=== PATIENT | female | born 1960 | race Caucasian/White ===

== ENCOUNTER 2024-11-21 07:48 | Emergency (ER) | payer MEDICAID, SELFPAY ==
[2024-11-21 07:59] VITALS: PULSE 100; RESP 18; O2SAT 97; BMI 29.2
[2024-11-21 08:29] VITALS: BP 106/71; PULSE 95; RESP 18; TEMP 36.7; O2SAT 98
--- NOTE | 2024-11-21 08:44 | XR_ITS ---
EXAMINATION: Ankle, right 3 views . Technique: Ankle AP, oblique, lateral 3 views Date and time of exam: November 21, 2024 0851 hrs. Indications: Patient fell today with injury to the ankle, ankle pain. Findings: Acute fractures distal tibia, comminuted, including through the posterior malleolar region Fractures distal fibula without significant offset Ankle subluxation with marked widening of the anterior tibiotalar joint Impression: Ankle fractures with subluxation
--- NOTE | 2024-11-21 08:44 | XR_ITS ---
Examination: Foot, right, 3 views Technique: AP, oblique, lateral views foot, 3 views Date and time of exam: November 21, 2024 0851 hrs. Indications: Patient fell today with injury to the right foot, right foot pain Findings: Moderate osteopenia Please see the ankle report Tarsal bones metatarsals and digits appear intact Impression: Please see the ankle report
--- NOTE | 2024-11-21 09:05 | PD.EDRME ---
Rapid Medical Screening Exam RME Arrival date/time: 11/21/24 07:48 64-year-old female presents the emergency department with EMS for complaints of right ankle pain Chief Complaint: Ankle/Foot Injury Time Seen by Provider: 11/21/24 08:10 Vital signs: Vital Signs Temperature 98.1 F 11/21/24 08:29 Pulse Rate 95 11/21/24 08:29 Respiratory Rate 18 11/21/24 08:29 Blood Pressure 106/71 11/21/24 08:29 Pulse Oximetry (%) 98 11/21/24 08:29 Oxygen Delivery Method Room Air 11/21/24 08:29
--- NOTE | 2024-11-21 09:29 | PD.EDANKLE ---
Lower Extremity Injury RME/HPI General Chief Complaint: Ankle/Foot Injury Stated Complaint: ANKLE INJURY Time Seen by Provider: 11/21/24 08:10 Arrival date/time: 11/21/24 07:48 RME / HPI RME / HPI Narrative: 11/21/24 07:48 64-year-old female presents the emergency department with EMS for complaints of right ankle pain DR. LEE MAIN ED EVALUATION: 64 year old female presents to the Emergency Department [facility] with complaint of right ankle injury due to falling from bed prior to arrival. States she is unable to bear any weight secondary to the pain. Related Data Home Medications ?Medication ?Instructions ?Recorded ?Confirmed quetiapine 300 mg tablet 300 mg PO TID 09/22/18 03/14/24 gabapentin 600 mg tablet 600 mg PO BID 05/20/19 03/14/24 chlorzoxazone 250 mg tablet 250 mg PO QID 05/07/20 03/14/24 ibuprofen 800 mg tablet 800 mg PO Q8H PRN Pain 05/07/20 03/14/24 loratadine 10 mg tablet 10 mg PO QDAY 05/07/20 03/14/24 zolpidem 12.5 mg tablet,extended 12.5 mg PO HS 05/07/20 03/14/24 release,multiphase amlodipine 10 mg tablet 10 mg PO QDAY 03/14/24 03/14/24 Previous Rx's ?Medication ?Instructions ?Recorded pantoprazole 40 mg tablet,delayed 40 mg PO QDAY #30 tabs 05/07/20 release (Protonix) lactulose 10 gram/15 mL oral 10 g (15 mL) PO BID #946 mL 01/21/24 solution docusate sodium 100 mg capsule 100 mg PO BID #40 caps 03/15/24 (Colace) hydrocodone 5 mg-acetaminophen 325 1 tab PO Q6H PRN pain (scale score 03/15/24 mg tablet 7-10) #20 tabs ibuprofen 600 mg tablet 600 mg PO Q8H PRN pain (scale 03/15/24 score 4-6) #15 tabs hydrocodone 5 mg-acetaminophen 325 1 tab PO Q6H PRN pain #14 tabs 11/21/24 mg tablet Allergies Allergy/AdvReac Type Severity Reaction Status Date / Time No Known Allergies Allergy Verified 11/21/24 08:03 Review of Systems Review of Systems Systems Reviewed: All systems reviewed, normal except as documented Past Medical History Past Medical History NEUROLOGIC: Positive Neurological Disorders and Dementia CARDIAC: Positive Cardiac Disorders, Hypercholesterolemia and Hypertension RESPIRATORY: Positive Respiratory Disorders, Chronic Obstructive Pulmonary Disease (COPD) and Pneumonia GASTROINTESTINAL: Positive Gastrointestinal Disorders, Hepatitis (C had treatment 1995), Cirrhosis, Gall Bladder Disease and Irritable Bowel REPRODUCTIVE: Positive Previous Pregnancies MUSCULOSKELETAL: Positive Musculoskeletal Disorders, Arthritis (hands) and Fractures (here for r ankle fracture) PSYCHO/SOCIAL: Positive Depression OTHER HISTORY: Positive Chicken Pox, Measles and Mumps Surgical History SURGICAL: Positive Abdominal Surgery, Joint Replacement, of Shoulder Sx, Open Reduction Internal Fixation (Left shoulder has metal) and of Back Surgery Social History SMOKING STATUS: Current every day smoker SUBSTANCE USE: does not use ALCOHOL: Never ED Exam Narrative Physical exam: GENERAL APPEARANCE: alert and oriented x 4, well-developed, well-nourished VITALS: All vitals were reviewed and the pulse ox is 98% on room air, which is normal according to my interpretation. HEENT: Normocephalic, atraumatic; pupils equal, round, reactive to light; EOMI; mucous membranes pink, moist; oropharynx clear NECK: Supple LUNGS: CTABL; no wheezes, no rales, no rhonchi HEART: Regular rate, regular rhythm; normal S1, S2; no murmurs ABDOMEN: non distended; normal BS; soft, no tenderness, no guarding, no rebound; no masses, no organomegaly, no hernia BACK: no CVA tenderness EXTREMITIES: Right ankle edema and deformity, NV is intact. NEUROLOGIC: awake; alert and oriented x4; cranial nerves II-XII grossly intact; no focal sensory or motor deficits PSYCHIATRIC: appropriate mood and affect SKIN: warm, dry, normal color; no rashes Course Quality Measures none Orders Category Date Time Status Crutches .NOW Care 11/21/24 14:[address] ankle RT wo con Stat Exams 11/21/24 10:09 Completed XR ankle comp RT min 3V Stat Exams 11/21/24 08:44 Completed XR foot comp RT min 3V Stat Exams 11/21/24 08:44 Completed HYDROmorphone INJ [Dilaudid Inj] Med 11/21/24 09:29 Discontinued 1 mg IVP X1 ONE HYDROmorphone INJ [Dilaudid Inj] Med 11/21/24 14:30 Discontinued 1 mg IVP X1 ONE Ondansetron Inj [Zofran Inj] Med 11/21/24 09:29 Discontinued 4 mg IV X1 ONE Ondansetron Inj [Zofran Inj] Med 11/21/24 14:30 Discontinued 4 mg IV X1 ONE Vital Signs Vital signs: Vital Signs Temperature 98.1 F 11/21/24 08:29 Pulse Rate 95 11/21/24 08:29 Respiratory Rate 18 11/21/24 08:29 Blood Pressure 106/71 11/21/24 08:29 Pulse Oximetry (%) 98 11/21/24 08:29 Oxygen Delivery Method Room Air 11/21/24 08:29 Extremity Injury, Lower MDM Narrative MDM Narrative:: I, Stacey Ho, am scribing for and in the presence of Dr. Lee. Patient data External records reviewed:: EMS form Clinical information provided by:: patient and EMS Social determinants that could affect healthcare access:: none Patient has the following chronic illnesses:: Hypertension, IBS, gallstones, cholecystectomy 03/15/[address] Reddy. How is presenting disease/condition affected by chronic disease/condition?: uneffected by Evaluation data The following diagnostics were reviewed and interpreted by me:: radiology exam(s) Lab and/or radiology exams considered but not ordered:: none Interpretation Summary: Procedure(s): XR foot comp RT min 3V Accession Number(s): [id number] cc: Carole (MILVIA),[employer]; Blayne Shaver MD; Chelo Clark~ Examination: Foot, right, 3 views Technique: AP, oblique, lateral views foot, 3 views Date and time of exam: November 21, 2024 0851 hrs. Indications: Patient fell today with injury to the right foot, right foot pain Findings: Moderate osteopenia Please see the ankle report Tarsal bones metatarsals and digits appear intact Impression: Please see the ankle report Dictated By: Blayne Shaver MD Procedure(s): XR ankle comp RT min 3V Accession Number(s): [id number] cc: Carole KIMBALL),[employer]; Blayne Shaver MD; Chelo Clark~ EXAMINATION: Ankle, right 3 views . Technique: Ankle AP, oblique, lateral 3 views Date and time of exam: November 21, 2024 0851 hrs. Indications: Patient fell today with injury to the ankle, ankle pain. Findings: Acute fractures distal tibia, comminuted, including through the posterior malleolar region Fractures distal fibula without significant offset Ankle subluxation with marked widening of the anterior tibiotalar joint Impression: Ankle fractures with subluxation Dictated By: Blayne Shaver MD Procedure(s): CT ankle RT wo con Accession Number(s): [id number] cc: Blayne Shaver MD; Kimberly Lee MD; Chelo Clark~ Examination: CT right ankle, without contrast. 2-D sagittal reconstructions. 2-D coronal reconstructions. 3-D reconstructions. Date and time of exam:November 21, 2024 1001 hrs. Indications: Patient fell today with injury to the ankle, ankle pain CTDI: vol (mGy):4.95 DLP: (mGycm):131 Technique: Multiple 1.25 mm axial sections of the right ankle without intravenous contrast have been obtained. 2-D sagittal and coronal reconstructions have been obtained. 3-D reconstructions have been obtained. Low dose protocols were performed. One or more of the following dose reduction techniques were used; automated exposure control, adjustment of the mA and/or KV according to patient size, use of iterative reconstruction technique. Findings: Acute comminuted fractures distal tibia including 27 mm posterior malleolar fracture fragment Fractures extend to the distal articulating surface of the tibia There is a fracture also to the medial malleolus coronal image 50 without significant displacement Fractures distal fibula, 25 mm from the fibular tip Talus appears intact Abnormal widening at the anterior tibiotalar joint Offset at the articular surface of the distal tibia, 3 mm, sagittal image 36 Impression: Acute comminuted fractures distal tibia including 27 mm mildly displaced posterior malleolar fracture Medial malleolar fracture is evident without significant displacement Fractures distal fibula 25 mm on the fibular tip with 7 mm separation at the main fracture site Abnormal widening of the anterior tibiotalar joint Dictated By: Blayne Shaver MD Medications / Prescriptions Medications or Prescriptions considered but not ordered:: none Medication administrations:: Medication Administration History Discontinued Medications Hydromorphone HCl (Hydromorphone Inj 2 Mg/Ml Vial) 1 mg IVP X1 ONE Stop: 11/21/24 09:30 Last Admin: 11/21/24 09:59 Dose: 1 mg Documented By: GEOFFREY Hydromorphone HCl (Hydromorphone Inj 2 Mg/Ml Vial) 1 mg IVP X1 ONE Stop: 11/21/24 14:31 Last Admin: 11/21/24 14:38 Dose: 1 mg Documented By: GEOFFREY Ondansetron HCl (Ondansetron Inj 2 Mg/Ml Inj 2 Ml) 4 mg IV X1 ONE Stop: 11/21/24 09:30 Last Admin: 11/21/24 09:59 Dose: 4 mg Documented By: GEOFFREY Ondansetron HCl (Ondansetron Inj 2 Mg/Ml Inj 2 Ml) 4 mg IV X1 ONE Stop: 11/21/24 14:31 Last Admin: 11/21/24 14:37 Dose: 4 mg Documented By: GEOFFREY see above if any Consultations Consultation(s) initiated? (list below): Yes Consultation #1 (Physician, Specialty, Details): Left a message for Dr. Norris and sent him images. Time: 09:31 Consultation #2 (Physician, Specialty, Details): Discussed test HPI, PMHx, lab, radiology results and/or management with Dr. Norris. Dr. Norris recommends a CT of the ankle. Time: 10:11 Consultation #3 (Physician, Specialty, Details): 1329: Called Dr. Norris back. He is currently in surgery but they are still waiting to hear on [facility] at this time. 1400: Dr. Norris called back. Pattient will follow up with ortho Dr. Saldivar at [facility] as an outpatient. Diagnosis Extremity Injury, Lower Differential Diagnosis: ankle sprain and strain, acute internal derangement of knee, fracture of toe and ankle fracture Most likely diagnosis given after review of the tests above:: Ankle fracture Admission Indicated Admission indicated?: not indicated Admission Request Was there a request for admission?: No Disposition Plan Disposition Plan: Discharge Discharge Attestation Discharge Attestation: The patient and all family members were given an opportunity to ask questions and understood the discharge instructions. Discharge instructions specifically effects, indications for sooner follow up or return to the emergency department, and the expected course of current diagnosis. Patient condition: Stable Discharge Plan Plan Patient Disposition: HOME (Self Care) Prescriptions/Referrals Prescriptions/Med Rec: New hydrocodone-acetaminophen 5-325 mg tablet 1 tab PO Q6H MDD 9 PRN (Reason: pain) Qty: 14 0RF No Action quetiapine 300 mg tablet 300 mg PO TID gabapentin 600 mg tablet 600 mg PO BID Patient Comments: TAKE ONE TABLET BY MOUTH TWICE DAILY NEEDED FOR PAIN ibuprofen 800 mg Tablet 800 mg PO Q8H PRN (Reason: Pain) chlorzoxazone 250 mg Tablet 250 mg PO QID loratadine 10 mg Tablet 10 mg PO QDAY zolpidem 12.5 mg Tablet,Ext Release Multiphase 12.5 mg PO HS pantoprazole [Protonix] 40 mg tablet,delayed release (DR/EC) 40 mg PO QDAY Qty: 30 0RF lactulose 10 gram/15 mL solution 10 g PO BID Qty: 946 0RF amlodipine 10 mg Tablet 10 mg PO QDAY docusate sodium [Colace] 100 mg capsule 100 mg PO BID Qty: 40 0RF hydrocodone-acetaminophen 5-325 mg tablet 1 tab PO Q6H MDD 4 PRN (Reason: pain (scale score 7-10)) Qty: 20 0RF ibuprofen 600 mg tablet 600 mg PO Q8H PRN (Reason: pain (scale score 4-6)) Qty: 15 0RF Referrals: Chelo Clark FNP [Primary Care Provider] - In 1 week Problem List Clinical Impression: Ankle fracture Patient/Caregiver Discharge Instructions Education Materials: ED Crutch Walking, ED Fracture, Lower Extremity Additional Instructions: Keep leg elevated. No weight bearing. Follow up with Dr. Saldivar, orthopedics, [facility] on Tuesday11/26/24. Call office for appointment time. [phone] [id number] [facility] [address], [place] [address] Print Language: Vietnamese Stand Alone Forms: Mariam Award Info., Patient Portal Info Letter
[2024-11-21] MEDS: HYDROmorphone INJ 2 MG/ML VIAL 1 MG IVP ×2 (09:59→14:38)
[2024-11-21] MEDS: ONDANSETRON INJ 2 MG/ML INJ 2 ML 4 MG IV ×2 (09:59→14:37)
[2024-11-21 10:01] VITALS: BP 133/85; PULSE 92; RESP 16; TEMP 36.8; O2SAT 97
--- NOTE | 2024-11-21 10:09 | XR_ITS ---
Examination: CT right ankle, without contrast. 2-D sagittal reconstructions. 2-D coronal reconstructions. 3-D reconstructions. Date and time of exam:November 21, 2024 1001 hrs. Indications: Patient fell today with injury to the ankle, ankle pain CTDI: vol (mGy):4.95 DLP: (mGycm):131 Technique: Multiple 1.25 mm axial sections of the right ankle without intravenous contrast have been obtained. 2-D sagittal and coronal reconstructions have been obtained. 3-D reconstructions have been obtained. Low dose protocols were performed. One or more of the following dose reduction techniques were used; automated exposure control, adjustment of the mA and/or KV according to patient size, use of iterative reconstruction technique. Findings: Acute comminuted fractures distal tibia including 27 mm posterior malleolar fracture fragment Fractures extend to the distal articulating surface of the tibia There is a fracture also to the medial malleolus coronal image 50 without significant displacement Fractures distal fibula, 25 mm from the fibular tip Talus appears intact Abnormal widening at the anterior tibiotalar joint Offset at the articular surface of the distal tibia, 3 mm, sagittal image 36 Impression: Acute comminuted fractures distal tibia including 27 mm mildly displaced posterior malleolar fracture Medial malleolar fracture is evident without significant displacement Fractures distal fibula 25 mm on the fibular tip with 7 mm separation at the main fracture site Abnormal widening of the anterior tibiotalar joint
[2024-11-21 11:50] VITALS: BP 141/86; PULSE 97; RESP 18; TEMP 36.6; O2SAT 97
[2024-11-21 14:20] VITALS: BP 147/81; PULSE 85; RESP 19; TEMP 36.7; O2SAT 97
[2024-11-21 15:30] VITALS: BP 128/83; PULSE 91; RESP 18; TEMP 36.8; O2SAT 96
== END 2024-11-21 15:32 | disposition home or self-care (01) ==
PROVIDERS: Emergency Provider Emergency Medicine; PCP Nurse Practitioner Family
DX: S82.51XA Displaced fracture of medial malleolus of right tibia, initial encounter for closed fracture (principal); S82.831A Other fracture of upper and lower end of right fibula, initial encounter for closed fracture; W06.XXXA Fall from bed, initial encounter
CPT/HCPCS: 73610; 73630; 73700; 96374; 96375; 96376; 99284; J2405; J3490

== ENCOUNTER 2025-04-30 11:46 | Emergency (ER) | payer BC, SELFPAY ==
[2025-04-30 12:17] VITALS: BP 88/61; PULSE 109; RESP 21; TEMP 37.6; O2SAT 87
--- NOTE | 2025-04-30 12:20 | EKG_ITS ---
[facility] Test Date: 2025-04-30 Pat Name: ITZ CATES Department: Room: - Gender: Female Picu Nurse: : 1960 Requested By: Charly Ji Order Number: [id number] Reading MD: Charly Ji Measurements Intervals [place] Rate: 102 P: 58 IN: 153 QRS: 51 QRSD: 82 T: 76 QT: 340 QTc: 444 Interpretive Statements SINUS TACHYCARDIA NONSPECIFIC T-WAVE ABNORMALITY ABNORMAL RHYTHM ECG Compared to ECG 03/14/2024 12:28:24 T-wave abnormality now present Sinus rhythm no longer present ST (T wave) deviation no longer present /store/S0/[id number]/ecg/[id number].pdf
--- NOTE | 2025-04-30 12:20 | XR_ITS ---
Examination: Foot, left, 3 views Technique: AP, oblique, lateral views foot, 3 views Date and time of exam: April 30, 2025 at 12:42 PM INDICATIONS: Injury to the foot today, foot pain. FINDINGS: Lisfranc fracture dislocations tarsometatarsal joints, fractures bases first second third and fourth metatarsals with dislocations at these tarsometatarsal joints Fractures medial mid and lateral cuneiforms Digits intact IMPRESSION: Prominent Lisfranc metatarsal tarsal fractures dislocation
--- NOTE | 2025-04-30 12:21 | PD.EDRME ---
Rapid Medical Screening Exam [facility] Arrival date/time: 04/30/25 11:46 64-year-old female with a history of hypertension presents to the emergency room with a chief complaint of left-sided foot swelling and tenderness after a ground-level fall that occurred last night. Patient states she has been falling frequently and does not know why. I have greeted and performed a focused initial assessment of this patient. A comprehensive ED assessment and evaluation of the patient, analysis of all test results, and completion of the medical decision making process will be conducted by additional ED providers. Chief Complaint: Ankle/Foot Injury Time Seen by Provider: 04/30/25 12:21 Vital signs: Vital Signs Temperature 99.7 F 04/30/25 12:17 Pulse Rate 109 H 04/30/25 12:17 Respiratory Rate 21 H 04/30/25 12:17 Blood Pressure 88/61 L 04/30/25 12:17 Pulse Oximetry (%) 87 L 04/30/25 12:17 Oxygen Delivery Method Room Air 04/30/25 12:17 Vital signs reviewed by provider: Yes
--- NOTE | 2025-04-30 12:29 | PD.EDADULT ---
ED General RME/HPI General Chief complaint: Ankle/Foot Injury Stated complaint: Fell Sat. morning, left foot broken Time Seen by Provider: 04/30/25 12:21 Arrival date/time: 04/30/25 11:46 CC: Left foot pain hypotension HPI patient fell Tuesday night, 3 days ago, resulting in swollen foot pain. Patient on upon initial assessment was noted to be hypotensive. The patient states that on occasion this morning she has been lightheaded or dizzy when she sits up or stands up. Patient denies fever chills chest pain shortness of breath or difficulty breathing. Local foot pain is now 6 on a 10 scale when standing, 1-2 on a pain scale when laying down. Patient smokes approximately half to 1 pack a day. Review the medical record show the patient was seen here in November 2024 for right ankle fracture secondary to fall at nighttime. RME / HPI RME / HPI narrative: 04/30/25 11:46 64-year-old female with a history of hypertension presents to the emergency room with a chief complaint of left-sided foot swelling and tenderness after a ground-level fall that occurred last night. Patient states she has been falling frequently and does not know why. I have greeted and performed a focused initial assessment of this patient. A comprehensive ED assessment and evaluation of the patient, analysis of all test results, and completion of the medical decision making process will be conducted by additional ED providers. Related Data Home Medications ?Medication ?Instructions ?Recorded ?Confirmed quetiapine 300 mg tablet 300 mg PO TID 09/22/18 03/14/24 gabapentin 600 mg tablet 600 mg PO BID 05/20/19 03/14/24 chlorzoxazone 250 mg tablet 250 mg PO QID 05/07/20 03/14/24 ibuprofen 800 mg tablet 800 mg PO Q8H PRN Pain 05/07/20 03/14/24 loratadine 10 mg tablet 10 mg PO QDAY 05/07/20 03/14/24 zolpidem 12.5 mg tablet,extended 12.5 mg PO HS 05/07/20 03/14/24 release,multiphase amlodipine 10 mg tablet 10 mg PO QDAY 03/14/24 03/14/24 Previous Rx's ?Medication ?Instructions ?Recorded pantoprazole 40 mg tablet,delayed 40 mg PO QDAY #30 tabs 05/07/20 release (Protonix) lactulose 10 gram/15 mL oral 10 g (15 mL) PO BID #946 mL 01/21/24 solution docusate sodium 100 mg capsule 100 mg PO BID #40 caps 03/15/24 (Colace) hydrocodone 5 mg-acetaminophen 325 1 tab PO Q6H PRN pain (scale score 03/15/24 mg tablet 7-10) #20 tabs ibuprofen 600 mg tablet 600 mg PO Q8H PRN pain (scale 03/15/24 score 4-6) #15 tabs hydrocodone 5 mg-acetaminophen 325 1 tab PO Q6H PRN pain #14 tabs 11/21/24 mg tablet albuterol sulfate 90 mcg/actuation 1 inh inhalation QID #6.7 grams 04/30/25 aerosol inhaler amoxicillin 875 mg-potassium 1 tab PO BID #14 tabs 04/30/25 clavulanate 125 mg tablet meloxicam 7.5 mg tablet 7.5 mg PO QDAY #10 tabs 04/30/25 Allergies Allergy/AdvReac Type Severity Reaction Status Date / Time No Known Allergies Allergy Verified 04/30/25 11:51 Review of Systems Review of Systems Narrative Review of Systems: GEN: No fever, no chills, no weight loss EYES: No discharge, no visual changes, no pain HEENT: No ear pain, no congestion, no sore throat PULM: No shortness of breath, no cough, no congestion CV: No chest pain, no dyspnea on exertion, no palpitations GI: No nausea, no vomiting, no diarrhea, no pain, no constipation : No frequency, no urgency, no dysuria MUSC/SKEL: + joint pain, no back pain SKIN: No rash PSYCH: No hallucinations, no depression HEME/LYMPH: No easy bleeding or bruising tendencies NEURO: No weakness, no headache Past Medical History Past Medical History NEUROLOGIC: Positive Neurological Disorders and Dementia; Negative Seizures CARDIAC: Positive Cardiac Disorders, Hypercholesterolemia and Hypertension; Negative Congestive Heart Failure RESPIRATORY: Positive Chronic Obstructive Pulmonary Disease (COPD) and Pneumonia; Negative Asthma GASTROINTESTINAL: Positive Gastrointestinal Disorders, Hepatitis (C had treatment 1995), Cirrhosis, Gall Bladder Disease and Irritable Bowel GENITOURINARY: Negative Genitourinary Disorders or Renal Disease REPRODUCTIVE: Positive Previous Pregnancies MUSCULOSKELETAL: Positive Musculoskeletal Disorders, Arthritis (hands) and Fractures (here for r ankle fracture) ENT: Negative Cataracts or Glaucoma ENDOCRINE: Negative Endocrine Disorders, Diabetes Mellitus Type 1 or Diabetes Mellitus Type 2 HEMATOLOGIC: Negative Blood Disorders or Sickle Cell Disease PSYCHO/SOCIAL: Positive Depression OTHER HISTORY: Positive Chicken Pox, Measles and Mumps; Negative Hospitalization, Autoimmune Disease, Shingles, Blood Transfusions, Anesthesia Reactions or Cancer Family History FAMILY HISTORY: Negative Family Psychiatric Problems, Family Respiratory Disorders, Family Cardiac Disorders, Family Gastrointestinal Problems, Family Cancer, Family Surgery or Family Anesthesia Reaction Surgical History SURGICAL: Positive Abdominal Surgery, Joint Replacement and Open Reduction Internal Fixation (Left shoulder has metal); Negative Cardiac Surgery Social History SMOKING STATUS: Current every day smoker SUBSTANCE USE: does not use ED Exam Narrative Physical exam: [General: In mild discomfort not in any acute distress Head normocephalic HEENT: Within acceptable limits Neck is supple nontender Chest equal chest rise nontender to palpation Respiratory: Clear to auscultation no wheezes crackles or rubs CV: Rate rhythm is regular no murmurs rubs or clicks Abdomen is soft nontender no masses positive bowel sounds all 4 quadrants Back: No CVA tenderness no spinous process tenderness from cervical spine thoracic and lumbar spine Skin: Left lower extremity foot, she has the entire foot covered in ecchymosis with a serous blister to the dorsum of the foot. Ecchymosis extends into the arch of the foot and over the ball of the foot no calcaneal ecchymosis no Achilles tendon ecchymosis. Otherwise skin is intact no petechiae rash induration ulceration or crepitus Extremities: Decreased range of motion of the left ankle and foot secondary to pain. Otherwise moving all other extremities against resistance cap refill less than 2 seconds neurosensory intact Neuro: Awake alert oriented x3 Glascow coma 15 no focal deficits] Course Course Course Narrative: Patient case discussed with Dr. Jr Aden on-call states the patient needs inpatient surgical reduction by podiatry which is not available here. Requesting the patient be transferred to a trauma center. So the second fall in 4 months I suspect the patient has been polypharmacy with her psychiatric medications as well as trazodone nighttime. Patient denies ever having taken lactulose. However this is listed as one of her medications. Patient's case clinical presentation and laboratory findings discussed with Dr. Renetta cotton, who states patient can be seen in outpatient but definitely require surgery. The patient is to be put into a splint and nonweightbearing. At this time we will treat the patient for the sepsis and if warranted discharge her for outpatient follow-up Patient informs me, Dr. Corrales performed the surgery on his right foot. She will refer back to him once she is discharged. Ultimately do not feel that the foot was the cause of the lactic acid or leukocytosis. And continued workup chest x-ray reveals pneumonia. The patient is a cigarette smoker oxygen saturations have remained consistently between 88 and 92% on room air. Patient was offered admission but declined stating she wants to go home and follow-up with the emt/paramedic for her foot. We will discharge the patient with antibiotics pain medication and inhaler. Patient is strongly advised to return to anytime she feels that she is short of breath. Quality Measures none Orders Category Date Time Status Crutches .NOW Care 04/30/25 14:42 Active EKG (ED ONLY) *Do not use* NOW Care 04/30/25 12:20 Completed In and Out Catheter X1PRN Care 04/30/25 14:00 Completed Splint / Immobilizer STAT Care 04/30/25 14:41 Active Referral - Garment Finisher Stat Cons 04/30/25 13:42 Active CXR [XR chest 1V] Stat Exams 04/30/25 15:55 Completed EKG (ED Only) Stat Exams 04/30/25 12:20 Draft XR foot comp LT min 3V Stat Exams 04/30/25 12:20 Completed Alcohol, Blood Medical Stat Lab 04/30/25 14:00 Completed Ammonia Stat Lab 04/30/25 14:00 Completed B-Type Natriuretic Peptide Stat Lab 04/30/25 12:52 Completed Blood Culture (Lab) Stat Lab 04/30/25 12:52 Received CBC Stat Lab 04/30/25 12:52 Completed CMP [Comprehensive Metabolic Panel] Stat Lab 04/30/25 12:52 Completed Creatine Kinase Stat Lab 04/30/25 14:00 Completed Drug Screen,Urine Stat Lab 04/30/25 14:19 Completed LDH (Lactate Dehydrogenase) Stat Lab 04/30/25 12:52 Completed Lactate (Lactic Acid) Stat Lab 04/30/25 12:45 Completed Lactic Acid, 3 HR Stat Lab 04/30/25 16:18 Completed Magnesium Stat Lab 04/30/25 12:52 Completed Magnesium Stat Lab 04/30/25 14:00 Completed Partial Thromboplastin Time Stat Lab 04/30/25 12:52 Completed Phosphorous Stat Lab 04/30/25 14:00 Completed Procalcitonin Stat Lab 04/30/25 12:52 Completed Prothrombin Time with INR Stat Lab 04/30/25 12:52 Completed Troponin I Stat Lab 04/30/25 12:52 Completed UA [Urinalysis] Stat Lab 04/30/25 14:19 Completed Urinalysis, C/S if Indicated Stat Lab 04/30/25 14:19 Completed Urine Culture Stat Lab 04/30/25 14:19 Received Morphine* Inj Med 04/30/25 14:01 Discontinued 4 mg IVP X1 ONE Ondansetron Inj [Zofran Inj] Med 04/30/25 14:01 Discontinued 4 mg IVP X1 ONE Piper/Tazo 3.375 gm Premix [Zosyn] Med 04/30/25 13:45 Discontinued 3.375 gm in 50 ml IV X1 Ringers Lactated 1000 ml [Lactated Ringers] 1,000 ml Med 04/30/25 13:45 Discontinued IV 999 mls/hr Sodium Chloride 0.9% 1000 ml [Ns] 1,000 ml Med 04/30/25 12:29 Discontinued IV 999 mls/hr Sodium Chloride 0.9% 500 ml [Ns] 500 ml Med 04/30/25 13:45 Discontinued IV 999 mls/hr Vital Signs Vital signs: Vital Signs Temperature 99.7 F 04/30/25 12:17 Pulse Rate 109 H 04/30/25 12:17 Respiratory Rate 21 H 04/30/25 12:17 Blood Pressure 88/61 L 04/30/25 12:17 Pulse Oximetry (%) 87 L 04/30/25 12:17 Oxygen Delivery Method Room Air 04/30/25 12:17 Discharge Plan Plan Patient Disposition: HOME (Self Care) Patient condition on transfer: Stable Prescriptions/Referrals Prescriptions/Med Rec: New amoxicillin-pot clavulanate 875-125 mg tablet 1 tab PO BID Qty: 14 0RF meloxicam 7.5 mg tablet 7.5 mg PO QDAY Qty: 10 0RF albuterol sulfate 90 mcg/actuation HFA aerosol inhaler 1 inh inhalation QID Qty: 6.7 1RF No Action quetiapine 300 mg tablet 300 mg PO TID gabapentin 600 mg tablet 600 mg PO BID Patient Comments: TAKE ONE TABLET BY MOUTH TWICE DAILY NEEDED FOR PAIN ibuprofen 800 mg Tablet 800 mg PO Q8H PRN (Reason: Pain) chlorzoxazone 250 mg Tablet 250 mg PO QID loratadine 10 mg Tablet 10 mg PO QDAY zolpidem 12.5 mg Tablet,Ext Release Multiphase 12.5 mg PO HS pantoprazole [Protonix] 40 mg tablet,delayed release (DR/EC) 40 mg PO QDAY Qty: 30 0RF lactulose 10 gram/15 mL solution 10 g PO BID Qty: 946 0RF hydrocodone-acetaminophen 5-325 mg tablet 1 tab PO Q6H MDD 9 PRN (Reason: pain) Qty: 14 0RF amlodipine 10 mg Tablet 10 mg PO QDAY docusate sodium [Colace] 100 mg capsule 100 mg PO BID Qty: 40 0RF hydrocodone-acetaminophen 5-325 mg tablet 1 tab PO Q6H MDD 4 PRN (Reason: pain (scale score 7-10)) Qty: 20 0RF ibuprofen 600 mg tablet 600 mg PO Q8H PRN (Reason: pain (scale score 4-6)) Qty: 15 0RF Referrals: J Carlos Castillo MD [Primary Care Provider, Internal Medicine] - In 1 week Problem List Clinical Impression: Lisfranc fracture, Sepsis, Pneumonia Patient/Caregiver Discharge Instructions Other Activity Instructions:: Take the medications as as prescribed, if there is a worsening shortness of breath return immediately to the emergency room. Follow-up with Dr. Corrales or Dr. Jackson emt/paramedic for your foot. Make sure you are no weightbearing on the foot and use the crutches every day. Education Materials: Treating Pneumonia, ED Fracture, Foot, ED Pneumonia (Adult) Additional Instructions: Follow-up at the [facility] in [place] at [address]. telephone number [phone] or the [facility] at [phone]. You will be taking care of by either Dr. Jackson or Dr. Corrales. Make sure you do not bear any weight on your foot. Use the crutches. Take the medication as prescribed for temporary pain relief. Print Language: Kinyarwanda Stand Alone Forms: Mariam Award Info., Patient Portal Info Letter, Work/School Release PA/INSTRUCTIONAL TECHNOLOGIST Supervising Physician GENNY/INSTRUCTIONAL TECHNOLOGIST Supervising Physician: Luis Salmon ENP MDM Clinical Information Provided by patient Medical Records Reviewed [facility] [place] Meds/Rx Considered, not Ordered None Chronic Illness/Social Conditions Add or document further as needed: Depression hypertension chronic pain Lab Interpretation Lab(s) interpretation(s): CBC shows a leukocytosis of 13.3 and H&H of 10.9 and 32.7 respectively no thrombocytopenia. Coags within acceptable limits CMP shows a sodium 135 CO2 of 18.9 glucose of 129 no other electrolyte imbalances. Lactic acid of 3. LDH at 300 alk phos at 137 ALT of 12 AST of 23 T. bili at 0.5 Troponin at 0.059 note: No old troponins for comparison BNP of 326 Pro-Doni of 4.89. Imaging Imaging interpretation: interpreted by me Provider imaging interpretation(s): Chest x-ray is shows bilateral pneumonia Foot x-rays inter by me read by radiology shows a left francs fracture dislocation. Medication Administration(s) Medication Administration History Discontinued Medications Sodium Chloride (Ns) 1,000 mls @ 999 mls/hr IV .Q1H1M ONE Stop: 04/30/25 13:29 Last Infusion: 04/30/25 13:50 Dose: Infused Documented By: Admin: 04/30/25 12:44 Dose: 999 mls/hr Documented By: Lactated Ringer's (Lactated Ringers) 1,000 mls @ 999 mls/hr IV .Q1H1M ONE Stop: 04/30/25 14:45 Last Infusion: 04/30/25 15:36 Dose: Infused Documented By: Admin: 04/30/25 14:28 Dose: 999 mls/hr Documented By: Sodium Chloride (Ns) 500 mls @ 999 mls/hr IV .Q31M ONE Stop: 04/30/25 14:15 Last Infusion: 04/30/25 14:27 Dose: Infused Documented By: Admin: 04/30/25 13:54 Dose: 999 mls/hr Documented By: Piperacillin/Tazobactam/Dextrose (Zosyn) 3.375 gm in 50 mls @ 100 mls/hr IV X1 ONE; Protocol Stop: 04/30/25 14:14 Last Infusion: 04/30/25 14:27 Dose: Infused Documented By: Admin: 04/30/25 13:56 Dose: 100 mls/hr Documented By: GM Morphine Sulfate (Morphine Sulf Inj 4 Mg/Ml Vial) 4 mg IVP X1 ONE Stop: 04/30/25 14:02 Last Admin: 04/30/25 15:08 Dose: 4 mg Documented By: GM Ondansetron HCl (Ondansetron Inj 2 Mg/Ml Inj 2 Ml) 4 mg IVP X1 ONE; Protocol Stop: 04/30/25 14:02 Last Admin: 04/30/25 15:08 Dose: 4 mg Documented By: GM
[2025-04-30 12:39] VITALS: BMI 32.3
[2025-04-30] MEDS: SODIUM CHLORIDE 0.9% 1000 ML 1,000 ML 999 ML IV (12:44)
[2025-04-30 12:56] LABS: Lactate (Lactic Acid) 3.0 mMol/L (0.4-2.0)
[2025-04-30 12:57] LABS: Basophils # (Auto) 0.1 Thou/mm3 (0.0-0.2); Basophils % (Auto) 0 % (0-2.5); Eosinophils # (Auto) 0.1 Thou/mm3 (0.0-0.5); Eosinophils % (Auto) 0 % (0-10); Hematocrit 32.7 % (36.0-46.0); Hemoglobin 10.9 g/dL (12.0-16.0); Immature Granulocytes Auto 0.07 Thou/mm3 (0.00-0.00); Lymphocytes # (Auto) 0.6 Thou/mm3 (1.0-4.8); Lymphocytes % (Auto) 4 % (10-50); Mean Corpuscular HGB Conc 33.3 g/dl (31.0-37.0); Mean Corpuscular Hemoglobin 30.5 pg (25.0-35.0); Mean Corpuscular Volume 92 fL (80-100); Monocytes # (Auto) 0.5 Thou/mm3 (0.0-0.8); Monocytes % (Auto) 3 % (0-12); Neutrophils # (Auto) 12.1 Thou/mm3 (1.8-7.7); Neutrophils % (Auto) 91 % (37-80); Nucleated Red Blood Cell # 0.00 Thou/mm3 (0.00-0.00); Nucleated Red Blood Cell % 0 /100 WBC (0); Platelet Count 403 Thou/mm3 (140-440); RDW Standard Deviation 46.3 fL (36.4-46.3); Red Blood Count 3.57 Miln/mm3 (4.00-5.20); White Blood Count 13.3 Thou/mm3 (3.6-11.0)
[2025-04-30 13:19] LABS: INR 1.0 (0.9-1.3); Partial Thromboplastin Time 29.2 Seconds (22.0-36.0); Prothrombin Time 11.2 Seconds (9.0-12.2)
[2025-04-30 13:25] LABS: B-Type Natriuretic Peptide 326 pg/mL (0-100)
[2025-04-30 13:33] LABS: Alanine Aminotransferase 12 U/L (10-49); Albumin, Serum 3.6 gm/dL (3.4-4.8); Albumin/Globulin Ratio 1.9 (1.2-2.2); Alkaline Phosphatase 137 U/L (46-116); Anion Gap 9 (7-16); Aspartate Amino Transferase 23 U/L (0-34); BUN/Creatinine Ratio 11 Ratio (12-20); Bilirubin,Total 0.5 mg/dL (0.3-1.2); Blood Urea Nitrogen 14 mg/dL (9-23); Calcium 8.7 mg/dL (8.3-10.6); Calcium (Corrected) 9.0 mg/dL (8.5-10.1); Carbon Dioxide 18.9 mMol/L (20.0-31.0); Chloride 107 mMol/L (98-107); Creatinine (Component) 1.3 mg/dL (0.6-1.3); Estimated Creatinine Clearance 45.2 mL/min (>60); Globulin 1.9 gm/dL (2.3-3.5); Glucose 129 mg/dL (74-106); LDH (Lactate Dehydrogenase) 300 U/L (120-246); Magnesium 2.0 mg/dL (1.6-2.6); Osmolality,Calculated 272 (275-295); Potassium 4.3 mMol/L (3.4-5.1); Procalcitonin 4.89 ng/ml (0.0-0.49); Sodium 135 mMol/L (136-145); Total Protein 5.5 gm/dL (5.7-8.2); eGFR 46 See Note
[2025-04-30 13:34] LABS: Troponin I 0.059 ng/mL (0.0-0.045)
--- NOTE | 2025-04-30 13:44 | PC.CC ---
Made aware by MILVIA Salmon that patient needed transfer for lisfrank fracture needing podiatry. Spoke to Ana at [facility] chart faxed images shared, will wait for call back.
[2025-04-30] MEDS: SODIUM CHLORIDE 0.9% 500 ML 500 ML 999 ML IV (13:54)
[2025-04-30] MEDS: PIPER/TAZO 3.375 GM PREMIX 3.375 GM/50 ML BAG IV (13:56)
[2025-04-30 13:57] VITALS: BP 108/68; PULSE 101; RESP 19; TEMP 37.7; O2SAT 91
[2025-04-30 14:26] LABS: Collection Type, Urine Clean Catch
[2025-04-30] MEDS: RINGERS LACTATED 1000 ML 1,000 ML 999 ML IV (14:28)
[2025-04-30 14:35] LABS: Ammonia < 10 uMol/L (11-32)
[2025-04-30 14:46] LABS: Amphetamine/Methamp Scrn,U Negative (Negative); Barbiturate Screen,Urine Negative (Negative); Benzodiazepines Screen,Urine Negative (Negative); Benzoylecgonine Screen, Ur Negative (Negative); Bilirubin,Urine Negative (Negative); Blood,Urine Negative (Negative); Clarity,Urine Clear (Clear/Hazy); Color,Urine Yellow (Lt Yel-Yel); Fentanyl Screen,Urine Negative (Negative); Glucose, Urine Negative (Negative); Hyaline Casts,Urine < 1 /hpf (0-1); Ketones,Urine Negative (Negative); Leukocyte Esterase,Urine Positive (Negative); Nitrite,Urine Positive (Negative); Opiate Screen,Urine Positive (Negative); PH,Urine 6.0 (5.0-7.0); Protein,Urine 1+ (Neg - Trace); RBC,Urine 1 /hpf (0-3); Specific Gravity,Urine 1.023 (1.001-1.035); Squamous Epithelial Cell,Urine < 1 /hpf (0-5); THC Screen,Urine Positive (Negative); Urobilinogen,Urine 2.0 mg/dL (0.0-1.0); WBC,Urine 4 /hpf (0-5)
[2025-04-30 14:47] LABS: Culture Indicated,Urine Yes
[2025-04-30 14:51] LABS: Alcohol, Blood Medical < 3.0 mg/dL (0-10.0); Magnesium 2.0 mg/dL (1.6-2.6); Phosphorous 3.4 mg/dL (2.4-5.1)
[2025-04-30] MEDS: MORPHINE SULF INJ 4 MG/ML VIAL IVP (15:08)
[2025-04-30] MEDS: ONDANSETRON INJ 2 MG/ML INJ 2 ML 4 MG IVP (15:08)
[2025-04-30 15:16] VITALS: BP 127/84; PULSE 108; RESP 20; TEMP 37.4; O2SAT 90
[2025-04-30 15:39] LABS: Creatine Kinase 104 U/L (34-171)
[2025-04-30 15:49] VITALS: BP 116/74; PULSE 106; RESP 20; TEMP 36.7; O2SAT 92
--- NOTE | 2025-04-30 15:55 | XR_ITS ---
Examination: AP chest single view Technique: Portable AP sitting chest single view Date and time: April 30, 2025, 1603 hrs. Indications: Sepsis alert Findings: Prominent bilateral perihilar pneumonia Mild prominence left ventricle Prominent osteopenia Impression: Extensive bilateral pneumonia
[2025-04-30 15:58] LABS: Reflex Lactate? Y
[2025-04-30 16:26] LABS: Lactic Acid, 3 HR 1.8 mMol/L (0.4-2.0)
[2025-04-30 18:23] VITALS: BP 103/78; PULSE 100; RESP 19; TEMP 37.4; O2SAT 92
== END 2025-04-30 19:18 | disposition home or self-care (01) ==
PROVIDERS: Nurse Practitioner Family; Registered Nurse General Practice; Emergency Provider Emergency Medicine; PCP Internal Medicine
DX: S92.312A Displaced fracture of first metatarsal bone, left foot, initial encounter for closed fracture (principal); S92.322A Displaced fracture of second metatarsal bone, left foot, initial encounter for closed fracture; S92.332A Displaced fracture of third metatarsal bone, left foot, initial encounter for closed fracture; S92.342A Displaced fracture of fourth metatarsal bone, left foot, initial encounter for closed fracture; J18.9 Pneumonia, unspecified organism; R00.0 Tachycardia, unspecified; W19.XXXA Unspecified fall, initial encounter; F17.210 Nicotine dependence, cigarettes, uncomplicated; E78.00 Pure hypercholesterolemia, unspecified; I10 Essential (primary) hypertension
CPT/HCPCS: 29515; 51701; 36415; 71045; 73630; 80053; 80307; 80320; 81001; 82140; 82550; 83605; 83615; 83735; 83880; 84100; 84145; 84484; 85025; 85610; 85730; 87040; 87077; 87086; 87186; 93005; 96361; 96365; 96375; 99284; J2270; J2405; J2543; J7030; J7120; J7999; A9270; G0480